=== PATIENT | female | born 1980 | race Caucasian/White ===

== ENCOUNTER → 2018-06-23 | Outpatient (CLI) | payer OTHER ==
[2018-06-23 07:29] LABS: ABSOLUTE BASOPHILS 0.1 thou/uL (0.0-0.2); ABSOLUTE EOSINOPHILS 0.1 thou/uL (0.0-0.7); ABSOLUTE LYMPHOCYTES 1.6 thou/uL (0.8-5.3); ABSOLUTE MONOCYTES 0.4 thou/uL (0.0-1.2); EOSINOPHILS 1.5 %; HEMATOCRIT 40.8 % (37.0-47.0); HEMOGLOBIN 13.7 gm/dL (12.0-15.0); LYMPHOCYTES 31.5 %; MCH 30.6 pg (26.0-34.0); MCHC 33.6 g/dL (28.0-37.0); MCV 91.1 fL (80.0-100.0); MONOCYTES 7.6 %; NUCLEATED RBCS 0 /100WBC; PLATELET COUNT* 153 thou/uL (150-400); POLYS 58.4 %; RBC 4.48 mil/uL (4.20-5.00); RDW-CV 13.5 % (10.5-14.5); WBC 5.2 thou/uL (4.0-11.0)
[2018-06-23 07:47] LABS: ALBUMIN 4.1 g/dL (3.4-5.0); ALKALINE PHOSPHATASE 54 U/L (46-116); ANION GAP 6 mmol/L (7-16); BUN 18 mg/dL (7-18); CALCIUM 9.1 mg/dL (8.5-10.1); CHLORIDE 104 mmol/L (98-107); CO2 31 mmol/L (21-32); CREATININE 0.8 mg/dL (0.6-1.3); GLUCOSE 90 mg/dL (70-99); POTASSIUM 3.9 mmol/L (3.5-5.1); SERUM ASSESSMENT Clear; SGOT 14 U/L (15-37); SGPT 16 U/L (30-65); SODIUM 141 mmol/L (136-145); TOTAL BILIRUBIN 0.4 mg/dL (<0.1-1.0); TOTAL PROTEIN 7.5 g/dL (6.4-8.2)
[2018-06-23 08:03] LABS: CHOLESTEROL 164 mg/dL (<200); HDL CHOLESTEROL 62 mg/dL (>40); LDL CHOLESTEROL 95 mg/dL (<100); TC:HDL 2.6 Ratio (Not establshd); TRIGLYCERIDE 38 mg/dL (<150); VLDL 8 mg/dL (<40)
[2018-06-23 11:16] LABS: % SATURATION 22 % (20-39); IRON 66 ug/dL (50-175)
== END ==
LOC: M.LAB 06:37
PROVIDERS: Internal Medicine
DX: Z13.220 Encounter for screening for lipoid disorders (principal); E53.8 Deficiency of other specified B group vitamins; E55.9 Vitamin D deficiency, unspecified; R53.83 Other fatigue

== ENCOUNTER → 2020-02-08 | Outpatient (CLI) | payer BC ==
[2020-02-08 13:07] LABS: ABSOLUTE BASOPHILS 0.1 thou/uL (0.0-0.2); ABSOLUTE EOSINOPHILS 0.1 thou/uL (0.0-0.7); ABSOLUTE LYMPHOCYTES 1.7 thou/uL (0.8-5.3); ABSOLUTE MONOCYTES 0.5 thou/uL (0.0-1.2); ABSOLUTE NEUTROPHILS 3.2 thou/uL (1.6-8.1); BASOPHILS 1.2 %; EOSINOPHILS 0.9 %; HEMATOCRIT 40.9 % (37.0-47.0); HEMOGLOBIN 14.2 gm/dL (12.0-15.0); LYMPHOCYTES 30.2 %; MCHC 34.7 g/dL (28.0-37.0); MCV 89.3 fL (80.0-100.0); MONOCYTES 8.8 %; MPV 9.9 fl. (7.2-11.1); NUCLEATED RBCS 0 /100WBC; PLATELET COUNT* 164 thou/uL (150-400); POLYS 58.9 %; RBC 4.58 mil/uL (4.20-5.00); RDW-CV 13.2 % (10.5-14.5); WBC 5.5 thou/uL (4.0-11.0)
[2020-02-08 13:22] LABS: ALBUMIN 4.2 g/dL (3.4-5.0); ALKALINE PHOSPHATASE 49 U/L (46-116); ANION GAP 6 mmol/L (7-16); BUN 14 mg/dL (7-18); CALCIUM 8.8 mg/dL (8.5-10.1); CHLORIDE 103 mmol/L (98-107); CO2 29 mmol/L (21-32); CREATININE 0.8 mg/dL (0.6-1.3); GLUCOSE 91 mg/dL (70-99); POTASSIUM 4.2 mmol/L (3.5-5.1); SGOT 18 U/L (15-37); SGPT 22 U/L (30-65); SODIUM 138 mmol/L (136-145); TOTAL BILIRUBIN 0.7 mg/dL (<0.1-1.0); TOTAL PROTEIN 7.3 g/dL (6.4-8.2)
[2020-02-08 13:36] LABS: CHOLESTEROL 196 mg/dL (<200); HDL CHOLESTEROL 71 mg/dL (>40); LDL CHOLESTEROL 117 mg/dL (<100); TC:HDL 2.8 Ratio (Not establshd); TRIGLYCERIDE 41 mg/dL (<150); VLDL 8 mg/dL (<40)
[2020-02-08 13:37] LABS: SERUM ASSESSMENT Clear
== END ==
LOC: M.LAB 12:45
PROVIDERS: ATTEND Internal Medicine
DX: Z00.00 Encounter for general adult medical examination without abnormal findings (principal); E55.9 Vitamin D deficiency, unspecified; Z79.899 Other long term (current) drug therapy

== ENCOUNTER 2020-12-16 13:53 | Observation (INO) | payer OTHER ==
[~2020-12-16] VITALS: Ht 154.9 cm; Wt 58.1 kg
--- NOTE | ~2020-12-16 | OP ---
[address] [address] OPERATIVE REPORT Name: ATIF LUDWIG Room: [address] Keila Oconnell#: [id number] Admission: 12/16/20 Attend Phys: Alannah Obando MD Discharge: 12/17/20 Date of : 78 Report #: [id number] THIS REPORT FOR: cc: Roney Alfred MD, K. Gay MD James, Kelly M. MD ~ DATE OF SURGERY: 12/16/2020 PREOPERATIVE DIAGNOSIS: Acute appendicitis. POSTOPERATIVE DIAGNOSIS: Acute appendicitis. OPERATIVE PROCEDURE: Laparoscopic appendectomy. ANESTHESIA: General endotracheal. OPERATIVE FINDINGS: Inflamed appendix. DESCRIPTION OF PROCEDURE: The patient was placed under general endotracheal anesthesia and the patient's abdomen was prepped and draped in a sterile fashion. A timeout was taken. IV antibiotics were administered. I began by infiltrating the infraumbilical crease with 0.5% Marcaine. A transverse incision placed there and with pickups and cautery dissection and S retractors, dissected down to the base of the infraumbilical incision, grasped with two Kochers and divided transversely with a #15 scalpel blade and then blunt dissection with a mosquito into the peritoneal cavity without injury to underlying abdominal viscera. A 0 PDS was looped through this incision site and a size 12 Wesley trocar was passed into the peritoneal cavity and secured at the skin. Insufflation with carbon dioxide to 5 liters was completed. A 5 mm 30-degree scope was inserted. The lower abdomen was appreciated and visualized and under direct visualization infiltration at the suprapubic and right mid abdomen followed by small incisions and tunneling under direct visualization into the peritoneal cavity with two 5 mm trocars, the patient was placed in Trendelenburg and left lateral decubitus positioning and the camera was placed from the suprapubic position. The bowel was rotated medially and the appendix was identified and with the aid of LigaSure carefully dissected down to the appendiceal cecal junction. An Endo-MICHAEL was brought into the field, placed across the appendiceal cecal junction and fired successfully amputating the appendix with the appendix being held by one grasper through the umbilical port. An Endopouch was fed into the abdomen, the appendix was placed in the pouch and the pouch was closed and retrieved from the umbilical incision site. The camera was replaced and the area of dissection was inspected. There was no active bleeding or purulence seen. Pneumoperitoneum was then released. Laparoscopic instruments and trocars were removed and the patient was placed back in the neutral position. The 0 PDS at the umbilical site was tied carefully and infiltrated with 0.5% Marcaine. All 3 incisions were closed with buried 4-0 [place] [address] OPERATIVE REPORT Name: ATIF LUDWIG Room: [address] Keila Oconnell#: [id number] Admission: 12/16/20 Attend Phys: Alannah Obando MD Discharge: 12/17/20 Date of : 78 Report #: [id number] sutures and sealed with Dermabond. ESTIMATED BLOOD LOSS: 5 mL SPECIMEN: Appendix. Sponge, instrument counts were correct. The patient was returned to the PACU in stable condition. By: [id number] Obando MD /nt
[2020-12-16 14:38] VITALS: BP 121/70
[2020-12-16 15:26] LABS: URINE BILIRUBIN NEGATIVE (Negative); URINE BLOOD TRACE (Negative); URINE CLARITY CLEAR; URINE COLOR YELLOW; URINE GLUCOSE-RANDOM NEGATIVE (Negative); URINE KETONES NEGATIVE (Negative); URINE LEUKOCYTES-REFLEX NEGATIVE (Negative); URINE NITRITE-REFLEX NEGATIVE (Negative); URINE PROTEIN NEGATIVE (Negative); URINE UROBILINOGEN 0.2 E.U./dl (0.2-1.0)
[2020-12-16 15:59] LABS: ABSOLUTE BASOPHILS 0.1 thou/uL (0.0-0.2); ABSOLUTE LYMPHOCYTES 1.4 thou/uL (0.8-5.3); ABSOLUTE MONOCYTES 0.8 thou/uL (0.0-1.2); ABSOLUTE NEUTROPHILS 9.3 thou/uL (1.6-8.1); BASOPHILS 0.5 %; EOSINOPHILS 0.1 %; HEMATOCRIT 39.8 % (37.0-47.0); HEMOGLOBIN 12.9 gm/dL (12.0-15.0); LYMPHOCYTES 11.8 %; MCH 29.2 pg (26.0-34.0); MCHC 32.3 g/dL (28.0-37.0); MCV 90.6 fL (80.0-100.0); MONOCYTES 6.9 %; MPV 10.4 fl. (7.2-11.1); NUCLEATED RBCS 0 /100WBC; PLATELET COUNT* 156 thou/uL (150-400); POLYS 80.7 %; RDW-CV 13.5 % (10.5-14.5); WBC 11.5 thou/uL (4.0-11.0)
[2020-12-16 16:02] LABS: CALCIUM 8.7 mg/dL (8.5-10.1); CREATININE 0.8 mg/dL (0.6-1.3); POTASSIUM 3.9 mmol/L (3.5-5.1)
[2020-12-16 16:07] LABS: ALBUMIN 3.9 g/dL (3.4-5.0); TOTAL BILIRUBIN 0.7 mg/dL (<0.1-1.0); TOTAL PROTEIN 7.3 g/dL (6.4-8.2)
[2020-12-16 17:45] VITALS: BP 92/50
[2020-12-16 20:00] VITALS: BP 112/59
--- NOTE | 2020-12-17 05:09 | NUR ---
RECEIVED PT FROM PACU AT APPROX 1999. PT IS AWAKE AND ORIENTED X4. PT IS NOT IN DISTRESS, NO DESATURATIONS NOTED ON ROOM AIR. POST LAP APPY SITES INTACT, AND DRY. PAIN MEDS GIVEN FOR TENDERNESS ON LAP INCISION SITES. PT HAS GOOD ORAL FLUID INTAKE, DENIES NAUSEA/VOMITING. CALL LIGHT WITHIN REACH. HOURLY ROUNDING DONE FOR PT SAFETY.
[2020-12-17 07:45] VITALS: BP 101/50
[2020-12-17] MEDS ORDERED: NORCO5 PO (08:11)
[2020-12-17 10:56] VITALS: BP 101/50
--- NOTE | 2020-12-17 11:15 | NUR ---
Discharge teaching reviewed with patient; verbalized understanding. IV discontinued. Discharged from unit per self.
--- NOTE | 2020-12-19 13:08 | PATH ---
[address] [address] PATHOLOGY RPT PROCEDURE Name: OZIELATIFKIRA TAM Room: [address] Anish#: [id number] Admission: 12/16/20 Date of : 78 Discharge: 12/17/20 Report #: [id number] Path Case #: [id number] [facility] Accession Number: [id number] . 01 Material submitted: . appendix - APPENDIX . 01 Clinical history: . LAPAROSCOPIC APPENDECTOMY APPENDICITIS . 02 Diagnosis: Appendix: - Acute appendicitis, periappendicitis and serositis. . (DENNIS:mml; 12/19/2020) [facility] 12/19/2020 1158 Local . 02 Electronically signed: . Manish Modi MD, Pathologist NPI- [id number] . 01 Gross description: . Fixative: Formalin Labeled: Appendix Appendix length: 6.6 cm Appendix diameter: 1.1 cm Mesoappendix: 1.2 cm Proximal margin: Stapled Serosa: [place]-mir, smooth with a slight amount of overlying adhesions Cut surface: Dilated lumen filled with mir-green material Luminal diameter: Up to 0.4 cm Perforation: None identified Lesions/abnormalities: None identified . Proximal margin and bisected tip in cassettes A1 and A2. Additional account service representative cross-sections in cassette A3. (CAA; 12/18/2020) [facility] 12/18/2020 1116 Local . 02 Pathologist provided ICD-10: K35.80, K65.8 . 02 CPT . 561181 Specimen Comment: A courtesy copy of this report has been sent to [phone] Specimen Comment: Report sent to Performed at: [address] [address] PATHOLOGY RPT PROCEDURE Name: ATIF LUDWIG [address] [id number] Admission: 12/16/20 Date of : 78 Discharge: 12/17/20 Report #: [id number] Path Case #: [id number] [address] [place] [id number] MD Raúl Bagley MD Phone: [phone] Performed at: [address] [id number] MD Manish Modi MD Phone: [phone]
== END 2020-12-17 11:11 | disposition home or self-care (01) ==
LOC: M.ERS 13:53 → M.SUR 17:53 → M.ORTHSURG 19:51
PROVIDERS: Physician Assistant; ADMIT Surgery; ATTEND Surgery
DX: K35.80 Unspecified acute appendicitis (principal); Z20.822 Contact with and (suspected) exposure to COVID-19; Z79.899 Other long term (current) drug therapy

== ENCOUNTER → 2021-06-06 | Outpatient (CLI) | payer OTHER ==
[~2021-06-06] MED LIST: NORCO5 PO
== END ==
LOC: M.ULTRA 09:20
PROVIDERS: ATTEND Obstetrics & Gynecology
DX: N92.0 Excessive and frequent menstruation with regular cycle (principal); N94.6 Dysmenorrhea, unspecified